=== PATIENT | male | born 1980 | race Two or more races ===

== ENCOUNTER 2021-03-06 01:41 | Emergency (ER) | payer SELFPAY ==
[~2021-03-06] VITALS: Ht 175.3 cm; Wt 75.0 kg
[2021-03-06 01:46] VITALS: BP 133/92
== END 2021-03-06 02:21 | disposition home or self-care (01) ==
LOC: ER 01:44
DX: Z00.8 Encounter for other general examination (principal); F10.129 Alcohol abuse with intoxication, unspecified; Z72.89 Other problems related to lifestyle; Y90.9 Presence of alcohol in blood, level not specified
CPT/HCPCS: 99283

== ENCOUNTER 2023-04-16 15:38 | Emergency (ER) | payer MEDICAID, OTHER ==
[~2023-04-16] VITALS: Ht 175.3 cm; Wt 79.8 kg
[2023-04-16] MEDS ORDERED: TRAM50TA2 PO (17:17)
[2023-04-16 17:34] VITALS: BP 148/112; PULSE 91; RESP 16; TEMP 98; O2SAT 98
== END 2023-04-16 17:36 | disposition home or self-care (01) ==
LOC: ER 15:39
DX: M79.671 Pain in right foot (principal); X58.XXXA Exposure to other specified factors, initial encounter; Y93.89 Activity, other specified; Y92.89 Other specified places as the place of occurrence of the external cause; Y99.8 Other external cause status
CPT/HCPCS: 73630; 99284